=== PATIENT | female | born 1995 | race Caucasian/White ===

== ENCOUNTER → 2018-04-29 | Outpatient (CLI) | payer OTHER ==
[~2018-04-29] MED LIST: FLUCONAZOLE100 MG PO; NEXPLANON68 M2 SQ
== END | disposition home or self-care (01) ==
LOC: US 15:43
DX: E07.9 Disorder of thyroid, unspecified (principal)

== ENCOUNTER → 2019-09-01 | Outpatient (CLI) | payer OTHER | END | disposition home or self-care (01) | LOC: RAD 16:42 | DX: M41.84 Other forms of scoliosis, thoracic region (principal); M41.86 Other forms of scoliosis, lumbar region ==